=== PATIENT | female | born 1980 | race Caucasian/White ===

== ENCOUNTER 2020-11-22 09:42 | Observation (INO) ==
[~2020-11-22 09:42] MED LIST: *HR* HYDROmorphone 2 MG TABLET PO PRN; *HR* Labetalol 20 MG/4 ML SYRINGE IVP PRN; *HR* OxyCODONE Immed Rel 5 MG TABLET PO PRN; Acetaminophen IV 1,000 MG/100 ML BAG IVPB ONE; Famotidine 20 MG/2 ML VIAL IVP ONE; Pregabalin 75 MG CAPSULE PO ONE
[2020-11-22] MEDS ORDERED: CeFAZolin Syr 2,000MG/20 ML 2,000 MG/20 ML SYRINGE IVPB ONE (10:00)
[2020-11-22] MEDS ORDERED: Ringers Solution, Lactated 1,000 ML IVC SCH ×2 (10:00→17:26)
[2020-11-22] MEDS ORDERED: *HR* FentaNYL (PF) 100 MCG/2 ML VIAL ONE (10:35)
[2020-11-22] MEDS ORDERED: *HR* Succinylcholine 200 MG/10 ML VIAL IVP ONE (10:35)
[2020-11-22] MEDS ORDERED: Lidocaine -MPF 2% 2 ML VIAL ONE (10:35)
[2020-11-22] MEDS ORDERED: *HR* Rocuronium Bromide 50 MG/5 ML VIAL ONE (10:35)
[2020-11-22] MEDS ORDERED: Ondansetron 4 MG/2 ML VIAL ONE (10:35)
[2020-11-22] MEDS ORDERED: *HR* Propofol 200 MG/20 ML VIAL IVP ONE ×5 (10:36→14:15)
[2020-11-22] MEDS ORDERED: *HR* Midazolam HCl 2 MG/2 ML VIAL ONE (10:36)
[2020-11-22] MEDS ORDERED: Lidocaine HCL 4 ML Topical Solution (Laryng-O-Jet Kit Sterile Pak) TP ONE (10:36)
[2020-11-22] MEDS ORDERED: *HR* Remifentanil 1 MG VIAL IVP ONE (10:37)
[2020-11-22] MEDS ORDERED: Bacitracin 50,000 UNIT, Polymyxin B Sulfate 500,000 UNIT, Sodium Chloride IRRigation 1,... IR ONE (11:15)
[2020-11-22] MEDS ORDERED: *HR* HYDROMORPHONE 2 MG/ML VIAL ONE (14:49)
[2020-11-22] MEDS: *HR* HYDROmorphone (PF) 1 MG/ML SYRINGE IVP PRN ×2 (16:09→16:19)
[2020-11-22] MEDS ORDERED: Naloxone 0.4 MG/ML INJ IVP PRN (17:26)
[2020-11-22] MEDS ORDERED: Acetaminophen 325 MG TABLET PO PRN (17:26)
[2020-11-22] MEDS ORDERED: Ondansetron 4 MG/2 ML VIAL IVP PRN (17:26)
[2020-11-22] MEDS: *HR* OxyCODONE Immed Rel 5 MG TABLET PO PRN (20:35)
[2020-11-22] MEDS: CeFAZolin 2 GM/120 ML BAG IVPB SCH (20:40)
[2020-11-23] MEDS: *HR* OxyCODONE Immed Rel 5 MG TABLET PO PRN ×4 (00:36→20:53)
[2020-11-23] MEDS: CeFAZolin 2 GM/120 ML BAG IVPB SCH (03:40)
[2020-11-23] MEDS: *HR* HYDROcodone/Acet 5/325 mg TABLET PO PRN ×3 (03:40→18:00)
[2020-11-24] MEDS: *HR* OxyCODONE Immed Rel 5 MG TABLET PO PRN ×2 (02:23→06:47)
[2020-11-24] MEDS: *HR* HYDROcodone/Acet 5/325 mg TABLET PO PRN (09:39)
[2020-11-24] MEDS ORDERED: 0.9 % Sodium Chloride 500 ML IVC ONE (10:45)
[2020-11-24] MEDS ORDERED: 0.9 % Sodium Chloride 500 ML ONE (10:51)
[2020-11-24] MEDS ORDERED: *HR* Midazolam HCl 2 MG/2 ML VIAL ONE ×2 (11:38→15:04)
[2020-11-24] MEDS ORDERED: *HR* FentaNYL (PF) 100 MCG/2 ML VIAL ONE ×2 (11:38→15:07)
[2020-11-24] MEDS ORDERED: *HR* Propofol 200 MG/20 ML VIAL IVP ONE ×2 (11:39→15:07)
[2020-11-24] MEDS ORDERED: Lidocaine HCL 4 ML Topical Solution (Laryng-O-Jet Kit Sterile Pak) TP ONE (11:39)
[2020-11-24] MEDS ORDERED: *HR* Rocuronium Bromide 50 MG/5 ML VIAL ONE ×2 (11:39→15:10)
[2020-11-24] MEDS ORDERED: Lidocaine -MPF 2% 2 ML VIAL ONE (11:39)
[2020-11-24 13:42] LABS: Influenza A PCR Negative (Negative); Influenza B PCR Negative (Negative); Resp. Syncytial Virus PCR Negative (Negative)
[2020-11-24 13:49] LABS: SARS-CoV-2 by PCR (In House) Negative (Negative)
[2020-11-24] MEDS ORDERED: Bacitracin 50,000 UNIT, Polymyxin B Sulfate 500,000 UNIT, Sodium Chloride IRRigation 1,... IR ONE (14:00)
[2020-11-24] MEDS ORDERED: *HR* HYDROmorphone PF 0.5 MG/0.5 ML SYRINGE IVP PRN (14:54)
[2020-11-24] MEDS ORDERED: Acetaminophen IV 1,000 MG/100 ML BAG IVPB ONE (15:04)
[2020-11-24] MEDS ORDERED: *HR* Succinylcholine 200 MG/10 ML VIAL IVP ONE (15:10)
[2020-11-24] MEDS ORDERED: Ondansetron 4 MG/2 ML VIAL ONE (15:38)
[2020-11-24] MEDS ORDERED: CeFAZolin Syr 2,000MG/20 ML 2,000 MG/20 ML SYRINGE IVPB ONE (15:44)
[2020-11-24] MEDS ORDERED: *HR* HYDROMORPHONE 2 MG/ML VIAL ONE (15:45)
[2020-11-24] MEDS ORDERED: Sugammadex Sodium 200 MG/2 ML VIAL IV ONE (15:59)
[2020-11-24] MEDS ORDERED: Ketorolac 30 MG/ML VIAL ONE (16:14)
[2020-11-24] MEDS ORDERED: Ondansetron 4 MG/2 ML VIAL IVP PRN (17:56)
[2020-11-24] MEDS ORDERED: Naloxone 0.4 MG/ML INJ IVP PRN (17:56)
[2020-11-24] MEDS ORDERED: *HR* OxyCODONE Immed Rel 5 MG TABLET PO PRN (17:56)
[2020-11-24] MEDS ORDERED: Acetaminophen 325 MG TABLET PO PRN (17:56)
[2020-11-24] MEDS: Ringers Solution, Lactated 1,000 ML IVC SCH (19:48)
[2020-11-25] MEDS: CeFAZolin 2 GM/120 ML BAG IVPB SCH ×2 (01:17→07:56)
[2020-11-25] MEDS: *HR* HYDROcodone/Acet 5/325 mg TABLET PO PRN ×2 (01:58→11:42)
[2020-11-25] MEDS: Ringers Solution, Lactated 1,000 ML IVC SCH (07:52)
[2020-11-25 08:07] VITALS: BP 108/67
== END 2020-11-25 12:50 | disposition home health service (06) ==
LOC: 3NENU 09:42 → SAMDAY 09:42 → 3NENU 17:25
PROVIDERS: ADMIT Orthopaedic Surgery Orthopaedic Surgery of the Spine; ATTEND Orthopaedic Surgery Orthopaedic Surgery of the Spine